=== PATIENT | female | born 1995 | race Caucasian/White ===

== ENCOUNTER 2020-10-21 10:08 | Outpatient (REF) | payer OTHER, SELFPAY ==
[2020-10-23 10:42] LABS: C. trachomatis RNA TMA NOT DETECTED (NOT DETECTED); N. gonorrhoeae RNA TMA NOT DETECTED (NOT DETECTED)
== END 2020-10-21 10:09 | disposition home or self-care (01) ==
LOC: HO.LAB 10:08
PROVIDERS: PCP Physician Assistant; Visit Provider Obstetrics & Gynecology
DX: Z01.419 Encounter for gynecological examination (general) (routine) without abnormal findings (principal); Z30.431 Encounter for routine checking of intrauterine contraceptive device
CPT/HCPCS: 87491; 87591

== ENCOUNTER 2021-10-27 09:25 | Outpatient (REF) | payer OTHER, SELFPAY ==
[2021-10-27 15:16] LABS: CT PCR NOT DETECTED (Not Detect.); NG PCR NOT DETECTED (Not Detect.)
== END 2021-10-27 09:26 | disposition home or self-care (01) ==
LOC: HO.LAB 09:25
PROVIDERS: PCP Physician Assistant; Visit Provider Obstetrics & Gynecology
DX: Z30.432 Encounter for removal of intrauterine contraceptive device (principal)
CPT/HCPCS: 58301; 87491; 87591

== ENCOUNTER → 2021-12-05 14:55 | Outpatient (BNVA) | payer OTHER, SELFPAY | PROVIDERS: Visit Provider Advanced Practice Midwife | DX: O99.350 Diseases of the nervous system complicating pregnancy, unspecified trimester (principal); G40.909 Epilepsy, unspecified, not intractable, without status epilepticus; Z3A.00 Weeks of gestation of pregnancy not specified | CPT/HCPCS: 81025 ==

== ENCOUNTER 2021-12-29 10:38 | Outpatient (REF) | payer OTHER, SELFPAY ==
--- NOTE | ~2021-12-29 | US_ITS ---
EXAMINATION: US OBSTETRICAL ULTRASOUND CLINICAL INFORMATION: Positive test COMPARISON: None. LMP: 10/18/2021. Gestational age by maternal dates is 10 weeks 2 days. Estimated date of delivery by maternal dates is 07/25/2022. TECHNIQUE: Transabdominal first trimester OB ultrasound FINDINGS: There is a single intrauterine gestational sac with visible yolk sac, embryo/fetus, and cardiac activity. There is no significant subchorionic hemorrhage or hematoma. HR: 161 beats per minute. CRL (crown rump length): 3 cm (9 weeks 6 days +/- 4 days). BLANCA (estimated date of delivery): 07/28/2022 +/- 4 days. MATERNAL ADNEXA: The right maternal ovary measures 3.4 x 1.6 x 2.8 cm. There is a 1 cm right ovarian cyst probably representing a corpus luteum. The left maternal ovary measures 2.1 x 0.9 x 2.4 cm. There is no significant maternal adnexal mass. No maternal pelvic ascites. US/US OB <= 14 weeks fetus IMPRESSION: 1. Single intrauterine gestation with ultrasound gestational age of 9 weeks 6 days +/- 4 days. 2. Estimated date of delivery is 07/28/2022 +/- 4 days. 3. No maternal adnexal mass or pelvic ascites.
== END 2021-12-29 10:39 | disposition home or self-care (01) ==
LOC: HO.US 10:38
PROVIDERS: Visit Provider Advanced Practice Midwife
DX: O99.350 Diseases of the nervous system complicating pregnancy, unspecified trimester (principal); G40.909 Epilepsy, unspecified, not intractable, without status epilepticus; Z3A.00 Weeks of gestation of pregnancy not specified
CPT/HCPCS: 76801

== ENCOUNTER 2022-01-12 10:07 | Outpatient (REF) | payer OTHER, SELFPAY ==
[2022-01-12 12:33] LABS: Hematocrit 40.9 % (37.0-47.0); Hemoglobin 13.6 g/dl (12.0-16.0); Mean Corpuscular HGB Conc 33.3 g/dl (31.0-35.0); Mean Corpuscular Hemoglobin 30.9 pg (27.0-33.0); Mean Platelet Volume 12.1 fL (9.4-12.3); Platelet Count 192 X10*3/uL (160-400); Red Cell Distribution Width 12.8 % (11.0-16.0); White Blood Count 9.2 X10*3/uL (4.8-10.8)
[2022-01-12 12:59] LABS: Amphetamine Screen Urine Not Detected (Not Detect); Barbiturates, Urine Not Detected (Not Detect); Benzodiazepines Screen Urine Not Detected (Not Detect); Cannabinoid Screen Urine Not Detected (Not Detect); Cocaine Screen Urine Not Detected (Not Detect); Fentanyl, urine Not Detected (Not Detect); Opiate Screen Urine Not Detected (Not Detect); Phencyclidine Screen Urine Not Detected (Not Detect)
[2022-01-13 08:03] LABS: Syphilis Screen Nonreactive (Nonreactive)
[2022-01-13 08:05] LABS: ~HepC Num1 0.34 S/CO (0.00-0.79); ~Hepatitis C Antibody Nonreactive (Nonreactive)
[2022-01-13 08:20] LABS: HBsAGNum1 0.17 S/CO (0.00-0.99); HIV AB/AG Nonreactive (Nonreactive); HIV Num 1 0.04 S/CO (0.00-0.99); Hepatitis B Surface Antigen Negative (Negative)
[2022-01-13 17:20] LABS: Rubella IgG Antibody 1.42 Index
== END 2022-01-12 10:08 | disposition home or self-care (01) ==
LOC: HO.LAB 10:07
PROVIDERS: Visit Provider Advanced Practice Midwife
DX: Z34.91 Encounter for supervision of normal pregnancy, unspecified, first trimester (principal); Z3A.11 11 weeks gestation of pregnancy
CPT/HCPCS: 80307; 85027; 86762; 86780; 86787; 86803; 86850; 86900; 86901; 87086; 87340; 87389; 99212

== ENCOUNTER 2022-01-20 13:01 | Outpatient (REF) | payer OTHER, SELFPAY ==
--- NOTE | ~2022-01-20 | US_ITS ---
EXAMINATION: OBSTETRICAL ULTRASOUND, FIRST TRIMESTER HISTORY: 26-year-old at the 13.3 weeks of gestation NT screening COMPARISON: 12/29/2021 TECHNIQUE: Real time transabdominal imaging with color and M-mode Doppler. FINDINGS: A single, live IUP CRL of 65.6 mm c/w 19.0wks is noted. Heart Rate: 153 beats per minute. Normal yolk sac seen. NT was 1.95.mm. NB Present The embryo appears sonographically wnl for this GA. Both maternal ovaries are seen and appear normal. GESTATIONAL AGE: 1. Established GA: 13.3 wks 2. GA from AUA: 13.0 wks ESTIMATED DATE OF DELIVERY: 1. Established BLANCA: 07/25/2022 2. BLANCA from AUA: 07/28/2022 US/US OB 1T nuc measure IMPRESSION: 1. A single live IUP 2. Size equals dates 3. NT of 1.95 mm MFM Consultation: I reviewed the ultrasound findings along with significance of NT measurement. The NT of less than 3mm is generally reassuring. However, the sensitivity for T21 detection is only 60%. I reviewed the availability of serum aneuploidy screening which includes cell-free DNA and placental protein based tests. I discussed the sensitivity, false-positive rate, and other limitations associated with each test. I also reviewed the availability of invasive diagnostic tests that are associated small but definite risk of miscarriage. We also reviewed the differences between screening tests and diagnostic tests. After our discussion, she opted for the First trimester screening that is based on cell-free DNA or non-invasive testing (NIPT). The result will be faxed to your office in approximately 7 days. A follow up at 18 weeks for survey has been scheduled. Thank you very much for this referral. Total time 30 minutes. The time spent was devoted to counseling the patient about the disease and diagnosis, coordinating care including reviewing her records, pertinent lab data and studies, as well as discussing diagnostic evaluation and workup, plan therapeutic interventions and future disposition of care. This includes any additional research needed to obtain further information in formulating the plan of care of this patient. This note was generated with a voice recognition program. Please excuse any errors which may have been overlooked during my review of this note. Sometimes these errors may affect the content or meaning of a given sentence.
== END 2022-01-20 13:02 | disposition home or self-care (01) ==
LOC: HO.US 13:01
PROVIDERS: Visit Provider Advanced Practice Midwife
DX: Z34.91 Encounter for supervision of normal pregnancy, unspecified, first trimester (principal); Z3A.13 13 weeks gestation of pregnancy
CPT/HCPCS: 76813

== ENCOUNTER 2022-02-09 08:03 | Outpatient (REF) | payer OTHER, SELFPAY ==
[2022-02-09 16:03] LABS: CT PCR NOT DETECTED (Not Detect.); NG PCR NOT DETECTED (Not Detect.)
== END 2022-02-09 08:04 | disposition home or self-care (01) ==
LOC: HO.LAB 08:03
PROVIDERS: Visit Provider Obstetrics & Gynecology
DX: O99.352 Diseases of the nervous system complicating pregnancy, second trimester (principal); G40.909 Epilepsy, unspecified, not intractable, without status epilepticus; Z3A.15 15 weeks gestation of pregnancy
CPT/HCPCS: 81003; 87491; 87591; 88142; 99212

== ENCOUNTER 2022-03-03 13:58 | Outpatient (REF) | payer OTHER, SELFPAY ==
--- NOTE | ~2022-03-03 | US_ITS ---
EXAMINATION: US OBSTETRICAL CLINICAL INFORMATION: 27-year-old at 19.3 weeks of gestation Suspected anomaly COMPARISON: 01/20/2022 TECHNIQUE: Real-time transabdominal ultrasound was performed using C1-5 megahertz transducer. FINDINGS: A single, active, fetus is seen in breech presentation. The placenta is anterior without previa, and the amniotic fluid volume is wnl. MEASUREMENTS: 1. Biparietal Diameter: 3.9 cm; 17.5 wks 2. Occipital Frontal Diameter: 5.5 cm 3. Head Circumference: 15.4 cm; 18.3 wks 4. Abdominal Circumference: 13.9 cm; 19.3 wks 5. Femur Length: 3.9 cm; 19.0 wks 6. Humerus Length: 2.9 cm; 19.3 wks 7. Tibia Length: 2.6 cm; 19.1 wks 8. Ulna Length: 2.8 cm; 20.1 wks 9. Lateral ventricle: 0.64 cm 10. Cerebellum: 1.9 cm; 19.3 wks 11. Cisterna Magna: 0.27 cm 12. Nuchal Fold: 3.1 mm 13. Heart Rate: 147 beats per minute Rt ovary: Unable to visualize Lt ovary: normal Cervical length 3.2 cm on T/A. GESTATIONAL AGE: 1. Established GA: 19.3 wks 2. GA from [facility]: 18.5 wks ESTIMATED DATE OF DELIVERY: 1. Established BLANCA: 07/25/2022 2. BLANCA from [facility]: 07/30/2022 ANATOMY: The visualized anatomy includes but not limited to: 1. Cranium: Normal 2. Intracranial anatomy: cavum septum pellucidi, lateral ventricles, choroid plexus, cerebellum, posterior fossa, third and fourth ventricles. 3. face: orbits, lip/palate, profile, nasal bone 4. Heart: four-chamber view of the heart, ventricular septum, foramen ovale, pulmonary vein, left and right outflow tracts, three-vessel view, 3 vessel trachea view, aortic and ductal arches, situs.. 5. Diaphragm: Normal 6. Abdominal wall: Normal 7. Cord Insertion: Normal 8. Spine: Cervical, thoracic, lumbar, sacral. 9. Stomach: Normal size and shape 10. Right Kidney: Normal 11. Left Kidney: Normal 12. 3 vessel cord: Normal 13. Upper extremity: Open hands, fifth digit. 14. Lower extremity: Tibia, fibula, bilateral feet. 15. Bladder: Normal 16. Genitalia: Female, patient aware US/US OB /maternal detail IMPRESSION: 1. Single, living, intrauterine with appropriate biometry. 2. Normal survey DISCUSSION: I reviewed today's ultrasound findings. We discussed the limitations of ultrasound in diagnosing aneuploidy and other congenital abnormalities. I reviewed the differences between screening test and diagnostic test. Amniocentesis was discussed and declined. She was informed that the baseline incidence of congenital abnormalities is approximately 3-5%. Not all these conditions are diagnosable in utero. RECOMMENDATIONS: 1. Follow-up when necessary Thank you for allowing me to participate in her care. Total time 30 minutes. The time spent was devoted to counseling the patient about the disease and diagnosis, coordinating care including reviewing her records, pertinent lab data and studies, as well as discussing diagnostic evaluation and workup, plan therapeutic interventions and future disposition of care. This includes any additional research needed to obtain further information in formulating the plan of care of this patient. This note was generated with a voice recognition program. Please excuse any errors which may have been overlooked during my review of this note. Sometimes these errors may affect the content or meaning of a given sentence.
== END 2022-03-03 13:59 | disposition home or self-care (01) ==
LOC: HO.US 13:58
PROVIDERS: Visit Provider Advanced Practice Midwife
DX: O35.9XX0 Maternal care for (suspected) fetal abnormality and damage, unspecified, not applicable or unspecified (principal); Z3A.19 19 weeks gestation of pregnancy
CPT/HCPCS: 76811

== ENCOUNTER 2022-03-09 08:58 | Outpatient (REF) | payer OTHER, SELFPAY ==
[2022-03-22 21:27] LABS: CF Ethnicity NG; Cystic Fibrosis NEGATIVE (NEGATIVE)
== END 2022-03-09 08:59 | disposition home or self-care (01) ==
LOC: HO.LAB 08:58
PROVIDERS: Visit Provider Obstetrics & Gynecology
DX: Z34.92 Encounter for supervision of normal pregnancy, unspecified, second trimester (principal); Z3A.19 19 weeks gestation of pregnancy
CPT/HCPCS: 36415; 81220; 99212

== ENCOUNTER → 2022-04-06 15:45 | Outpatient (BNVA) | payer OTHER, SELFPAY | PROVIDERS: Visit Provider Obstetrics & Gynecology | DX: Z34.02 Encounter for supervision of normal first pregnancy, second trimester (principal); Z3A.23 23 weeks gestation of pregnancy | CPT/HCPCS: 99212 ==

== ENCOUNTER 2022-04-27 10:09 | Outpatient (REF) | payer OTHER, SELFPAY ==
[2022-04-27 12:09] LABS: Hematocrit 39.4 % (37.0-47.0); Hemoglobin 13.3 g/dl (12.0-16.0); Mean Corpuscular HGB Conc 33.8 g/dl (31.0-35.0); Mean Corpuscular Hemoglobin 32.4 pg (27.0-33.0); Mean Corpuscular Volume 95.9 fL (80.0-98.0); Mean Platelet Volume 11.9 fL (9.4-12.3); Platelet Count 165 X10*3/uL (160-400); Red Blood Count 4.11 X10*6/uL (4.20-5.50); Red Cell Distribution Width 12.4 % (11.0-16.0); White Blood Count 12.2 X10*3/uL (4.8-10.8)
[2022-04-27 12:33] LABS: Glucose 1 Hour PP 50gm Dose 85 mg/dL (60-140)
[2022-04-28 07:42] LABS: Syphilis Screen Nonreactive (Nonreactive)
== END 2022-04-27 10:10 | disposition home or self-care (01) ==
LOC: HO.LAB 10:09
PROVIDERS: Visit Provider Obstetrics & Gynecology
DX: Z34.90 Encounter for supervision of normal pregnancy, unspecified, unspecified trimester (principal)
CPT/HCPCS: 36415; 85027; 86780

== ENCOUNTER 2022-05-08 11:32 | Outpatient (REF) | payer OTHER, SELFPAY ==
[2022-05-08 13:55] LABS: Alanine Aminotransferase 12 U/L (0-31); Albumin Level 3.5 g/dL (3.5-5.0); Alkaline Phosphatase 54 U/L (39-117); Anion Gap 11 (12-20); Aspartate Amino Transferase 18 U/L (5-31); Bilirubin Total 0.2 mg/dL (0.0-1.0); Blood Urea Nitrogen 9 mg/dL (9-16); Calcium 9.1 mg/dL (8.4-10.2); Carbon Dioxide 24 mmol/L (22-29); Chloride 105 mmol/L (96-108); Estimated Glomerular Filt Rate > 60; Glucose Random 56 mg/dL (60-115); Potassium 3.9 mmol/L (3.3-5.1); Sodium 136 mmol/L (135-145); Total Protein 6.1 g/dL (6.5-8.0)
[2022-05-08 14:04] LABS: TSH reflex Free T4 1.59 uIU/mL (0.32-4.0); Vitamin D 25-OH Total 39.7 ng/mL (>30)
[2022-05-08 14:18] LABS: Folate > 20.0 ng/mL (> or = 4.0); Vitamin B12 456 pg/mL (200-900)
== END 2022-05-08 11:33 | disposition home or self-care (01) ==
LOC: HO.LAB 11:32
PROVIDERS: PCP Nurse Practitioner Family; Visit Provider Obstetrics & Gynecology
DX: O26.893 Other specified pregnancy related conditions, third trimester (principal); G40.909 Epilepsy, unspecified, not intractable, without status epilepticus; Z76.89 Persons encountering health services in other specified circumstances; Z3A.28 28 weeks gestation of pregnancy
CPT/HCPCS: 36415; 80053; 82306; 82607; 82746; 84443; 99212

== ENCOUNTER 2022-05-12 10:17 | Outpatient (REF) | payer OTHER, SELFPAY ==
--- NOTE | ~2022-05-12 | US_ITS ---
EXAMINATION: OBSTETRICAL ULTRASOUND, Follow up HISTORY: 27-year-old at the 29.3 weeks of gestation Size date discrepancy Seizure disorder on medication COMPARISON: 03/03/2022 TECHNIQUE: Real time transabdominal imaging with color and M-mode Doppler. PRESENTATION: Vertex PLACENTA LOCATION: Anterior without previa AMNIOTIC FLUID: 15.3 cm MEASUREMENTS: 1. Biparietal Diameter: 7.34 cm; 29.4 wks 2. Head Circumference: 27.15 cm; 29.5 wks 3. Abdominal Circumference: 24.0 cm; 28.2 wks 4. Femur Length: 5.4 cm; 28.3 wks 5. Heart Rate: 150 beats per minute WEIGHT: EFW: 1239 grams (2 lbs 12 oz) -- 12 %. BIOPHYSICAL PROFILE: Motion: 2 Tone: 2 Breathin. Amniotic Fluid: 2 Total score: 8/8 UA Doppler: S/D 2.8 GESTATIONAL AGE: 1. Established GA: 29.3 wks 2. GA from [facility]: 29.0 wks ESTIMATED DATE OF DELIVERY: 1. Established BLANCA: 07/25/2022 2. BLANCA from [facility]: 07/28/2022 US/US OB follow up IMPRESSION: 1. A single active fetus is in vertex presentation 2. EFW 12% 3. There is severe reassuring BPP and normal amniotic fluid volume 4. The SD ratio in the umbilical artery is within normal limits I reviewed today's findings and the limitations of ultrasound and estimating weights. The majority of the fetuses whose EFW corresponds to 10th percentile or less are constitutionally small but otherwise healthy fetuses growing to their full genetic potential. Approximately 20% of these fetuses may be experiencing placental insufficiency. Unfortunately it is difficult to distinguish the two in utero. Normal BPP, DAVID and Doppler are reassuring. I reviewed the approximate management of fetuses whose EFW is near the 10th percentile. She has been seizure-free for nearly 6 years. She is aware of the importance of continuing her antiseizure medications during . Please follow-up in approximately 3 weeks for a repeat growth and assessment. Thank you very much for this referral. Total time 30 minutes. The time spent was devoted to counseling the patient about the disease and diagnosis, coordinating care including reviewing her records, pertinent lab data and studies, as well as discussing diagnostic evaluation and workup, plan therapeutic interventions and future disposition of care. This includes any additional research needed to obtain further information in formulating the plan of care of this patient. This note was generated with a voice recognition program. Please excuse any errors which may have been overlooked during my review of this note. Sometimes these errors may affect the content or meaning of a given sentence.
== END 2022-05-12 10:18 | disposition home or self-care (01) ==
LOC: HO.US 10:17
PROVIDERS: Visit Provider Obstetrics & Gynecology
DX: O99.353 Diseases of the nervous system complicating pregnancy, third trimester (principal); O26.843 Uterine size-date discrepancy, third trimester; G40.909 Epilepsy, unspecified, not intractable, without status epilepticus; Z68.29 Body mass index [BMI] 29.0-29.9, adult
CPT/HCPCS: 76816

== ENCOUNTER → 2022-05-15 15:00 | Outpatient (BNVA) | payer OTHER, SELFPAY | PROVIDERS: Visit Provider Obstetrics & Gynecology | DX: Z34.93 Encounter for supervision of normal pregnancy, unspecified, third trimester (principal); Z3A.29 29 weeks gestation of pregnancy | CPT/HCPCS: 99212 ==

== ENCOUNTER → 2022-05-25 12:30 | Outpatient (BNVA) | payer OTHER, SELFPAY | PROVIDERS: Visit Provider Obstetrics & Gynecology | DX: O26.893 Other specified pregnancy related conditions, third trimester (principal); G40.909 Epilepsy, unspecified, not intractable, without status epilepticus; Z3A.30 30 weeks gestation of pregnancy | CPT/HCPCS: 99212 ==

== ENCOUNTER → 2022-06-12 11:27 | Outpatient (BNVA) | payer OTHER, SELFPAY | PROVIDERS: Visit Provider Obstetrics & Gynecology | DX: Z34.93 Encounter for supervision of normal pregnancy, unspecified, third trimester (principal); Z3A.33 33 weeks gestation of pregnancy | CPT/HCPCS: 99212 ==

== ENCOUNTER 2022-06-29 11:01 | Outpatient (REF) | payer OTHER, SELFPAY ==
[2022-06-29 12:17] LABS: Anion Gap 14 (12-20); Blood Urea Nitrogen 6 mg/dL (9-16); Calcium 9.3 mg/dL (8.4-10.2); Carbon Dioxide 24 mmol/L (22-29); Chloride 105 mmol/L (96-108); Estimated Glomerular Filt Rate > 60; Glucose Random 76 mg/dL (60-115); Sodium 139 mmol/L (135-145)
== END 2022-06-29 11:02 | disposition home or self-care (01) ==
LOC: HO.LAB 11:01
PROVIDERS: PCP Nurse Practitioner Family; Visit Provider Nurse Practitioner Family
DX: Z00.00 Encounter for general adult medical examination without abnormal findings (principal)
CPT/HCPCS: 36415; 80048

== ENCOUNTER 2023-08-30 14:41 | Outpatient (AMB) | payer OTHER, SELFPAY ==
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
[2023-08-30 14:49] VITALS: BP 102/62; PULSE 70; O2SAT 100; BMI 21.8
== END 2023-08-30 15:23 | disposition home or self-care (01) ==
PROVIDERS: PCP Nurse Practitioner Family; Visit Provider Nurse Practitioner Family
DX: Z00.00 Encounter for general adult medical examination without abnormal findings (principal); G40.909 Epilepsy, unspecified, not intractable, without status epilepticus; G47.00 Insomnia, unspecified; F41.9 Anxiety disorder, unspecified; Z13.29 Encounter for screening for other suspected endocrine disorder; Z23 Encounter for immunization
CPT/HCPCS: 90471; 90686; 99395

== ENCOUNTER 2024-10-28 09:36 | Outpatient (AMB) | payer OTHER, SELFPAY ==
[2024-10-28 09:40] VITALS: BP 110/60; PULSE 60; O2SAT 100; BMI 21.3
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
== END 2024-10-28 10:09 | disposition home or self-care (01) ==
PROVIDERS: PCP Nurse Practitioner Family; Visit Provider Physician Assistant
DX: Z00.00 Encounter for general adult medical examination without abnormal findings (principal); F41.9 Anxiety disorder, unspecified; G40.909 Epilepsy, unspecified, not intractable, without status epilepticus; Z13.1 Encounter for screening for diabetes mellitus; Z3A.08 8 weeks gestation of pregnancy; Z23 Encounter for immunization

== ENCOUNTER → 2024-10-28 09:36 | Outpatient (BNVA) | payer OTHER, SELFPAY | PROVIDERS: PCP Nurse Practitioner Family; Visit Provider Physician Assistant | DX: Z00.00 Encounter for general adult medical examination without abnormal findings (principal); Z23 Encounter for immunization; O99.341 Other mental disorders complicating pregnancy, first trimester; F41.9 Anxiety disorder, unspecified; O99.351 Diseases of the nervous system complicating pregnancy, first trimester; G40.909 Epilepsy, unspecified, not intractable, without status epilepticus; Z3A.08 8 weeks gestation of pregnancy | CPT/HCPCS: 90471; 90656; 96127 ==

== ENCOUNTER 2025-09-30 15:58 | Outpatient (AMB) | payer OTHER, SELFPAY ==
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
[2025-09-30 16:03] VITALS: BP 90/60; PULSE 80; RESP 18; O2SAT 97; BMI 25.4
== END 2025-09-30 16:51 | disposition home or self-care (01) ==
LOC: HO.HMCH 15:59
PROVIDERS: PCP Physician Assistant; Visit Provider Internal Medicine
DX: R42 Dizziness and giddiness (principal); F53.0 Postpartum depression; G40.909 Epilepsy, unspecified, not intractable, without status epilepticus

== ENCOUNTER 2025-10-28 14:26 | Outpatient (AMB) | payer OTHER, SELFPAY ==
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
[2025-10-28 14:40] VITALS: BP 132/66; PULSE 72; TEMP 36.4; O2SAT 99; BMI 25.1
== END 2025-10-28 14:57 | disposition home or self-care (01) ==
LOC: HO.HMCH 14:27
PROVIDERS: PCP Physician Assistant; Visit Provider Internal Medicine
DX: F53.0 Postpartum depression (principal)